=== PATIENT | female | born 1985 | race Caucasian/White ===

== ENCOUNTER → 2022-07-16 | Day surgery (SDC) | payer OTHER ==
[~2022-07-16] MED LIST: COLLAGEN PO; DEXAMETHASONE PHOS 24 MG/ML 10ML VIAL ONE; DEXAMETHASONE SOD PHOS INJ 4 MG/ML SDV ONE; GINGER PO; LIDOCAINE HCL 2% LOCAL INJ 5 ML SDV VIAL INJ ONE; MELOXICAM7.5 MG PO; MULTI-VITAMIN1 EACH PO; ONDANSETRON HCL INJ 2MG/ML 2ML 2 MG/ML VIAL ONE; POVIDONE IODINE 0.05% 0.05 % ML PO ONE; PROPOFOL IV EMULSION 10 MG/ML 20 ML VIAL ONE; SETLAKIN 0.151 EACH PO; SEVOFLURANE INHAL SOLN 250 ML PEN BTL ONE; TUMERIC PO; VITAMIN D PO
[2022-07-16 09:30] VITALS: BP 126/73
== END | disposition home or self-care (01) ==
LOC: OR 06:05 → EDBD 09:00
PROVIDERS: ATTEND Otolaryngology Otolaryngology/Facial Plastic Surgery
DX: H90.3 Sensorineural hearing loss, bilateral (principal); H93.12 Tinnitus, left ear; M19.90 Unspecified osteoarthritis, unspecified site; F41.9 Anxiety disorder, unspecified; Z91.041 Radiographic dye allergy status; Z79.1 Long term (current) use of non-steroidal anti-inflammatories (NSAID)
CPT/HCPCS: 69436; 81025; J1100; J2001; J2405; J2704